=== PATIENT | female | born 1940 | race Caucasian/White ===

== ENCOUNTER 2018-02-21 12:06 | Day surgery (SDC) | payer MEDICARE ==
[2018-02-21] MEDS ORDERED: MORPHINE 2 MG/ML CARPUJECT IVP STA (12:46)
[2018-02-21] MEDS ORDERED: ONDANSETRON 4 MG/2 ML VIAL IVP STA (12:46)
--- NOTE | 2018-02-21 12:49 | ED Physician Documentation ---
PD HPI ABD PAIN - Stated complaint Stated Complaint: ADB PX/VOMITING - Chief complaint Chief Complaint: Abd Pain - History obtained from History obtained from: Patient - History of Present Illness Timing - onset: Last night (Around 5:00 last night, about half an hour eating steak and mushrooms she developed severe epigastric pain radiating down into the back. It was associated with nausea and vomiting but no changes in bowel movements. She is been sweating but no measured fevers or chills. She has a history of a remote appendectomy, no other abdominal surgeries.) Timing - details: Abrupt onset Location: All over / everywhere Associated symptoms: Nausea, Vomiting Review of Systems Ten Systems: 10 systems reviewed and negative Constitutional: reports: Sweats. denies: Fever, Chills Cardiac: denies: Chest pain / pressure, Palpitations Respiratory: denies: Dyspnea, Cough GI: reports: Abdominal Pain, Nausea, Vomiting. denies: Constipation, Diarrhea, Hematemesis, Bloody / black stool PD PAST MEDICAL HISTORY - Past Medical History Past Medical History: No Cardiovascular: High cholesterol Respiratory: None Neuro: None Endocrine/Autoimmune: None GI: None SILICATOR: None HEENT: None Psych: Depression Derm: None - Past Surgical History Past Surgical History: Yes General: Appendectomy Ortho: Hip replacement - Allergies Allergies/Adverse Reactions: Allergies Allergy/AdvReac Type Severity Reaction Status Date / Time No Known Drug Allergies Allergy Verified 02/21/18 12:21 - Social History Does the pt smoke?: Yes Smoking Status: Current every day smoker Does the pt drink ETOH?: Yes ETOH Use: Wine Does the pt have substance abuse?: No - Family History Family history: reports: Non contributory - Immunizations Immunizations are current?: Yes - POLST Patient has POLST: No PD ED PE NORMAL - Vitals Vital signs reviewed: Yes - General General: Alert and oriented X 3, No acute distress - HEENT HEENT: PERRL, EOMI - Neck Neck: Supple, no meningeal sign, No bony TTP - Cardiac Cardiac: RRR, No murmur - Respiratory Respiratory: No respiratory distress, Clear bilaterally - Abdomen Abdomen: Normal bowel sounds, Soft, Other (Minimal upper abdominal tenderness, equivocal [place] sign. No surgical signs.) - Back Back: No CVA TTP, No spinal TTP - Derm Derm: Normal color, Warm and dry - Extremities Extremities: No edema, No calf tenderness / cord - Neuro Neuro: Alert and oriented X 3, Normal speech Results - Vitals Vitals: Vital Signs - 24 hr 02/21/18 12:18 Temperature 36.7 C Heart Rate 83 Respiratory 16 Rate Blood Pressure 192/103 H O2 Saturation 99 Oxygen O2 Source Room air - EKG (time done) 1250 Rate: Rate (enter#) (91) Rhythm: NSR [place]: Normal Intervals: Normal VA QRS: Normal Ischemia: Normal ST segments Computer interpretation: Agree with computer - Rads (name of study) CT A/P Radiology: EMP read contemporaneously (Closed loop obstruction related to a direct left inguinal hernia) PD MEDICAL DECISION MAKING - ED course ED course: 77-year-old woman with acute abdominal pain and vomiting since last night. Initially the concern was for gallbladder issue given the history, that said she was not really very tender. She did have bowel sounds so the CT finding of a closed loop obstruction related to a left inguinal hernia was a surprise. I did address that after the CT and the hernia was palpated, but not grossly obvious on visual exam. I was unable to reduce it. Spoke with Dr. Raza who will take her to the OR, we spoke at 2:55 PM. - Sepsis Event Vital Signs: Vital Signs - 24 hr 02/21/18 12:18 Temperature 36.7 C Heart Rate 83 Respiratory 16 Rate Blood Pressure 192/103 H O2 Saturation 99 Oxygen O2 Source Room air Departure - Departure Disposition: ED Transfer to [facility] Clinical Impression: Small bowel obstruction Condition: Serious
[2018-02-21 13:12] LABS: BASOPHILS % (AUTO) 0.4 %; HGB - HEMOGLOBIN 14.3 g/dL (12.0-16.0); LYMPHOCYTES # (AUTO) 1.1 10^3/uL (1.5-3.5); LYMPHOCYTES % (AUTO) 10.4 %; MEAN CORPUSCULAR HGB CONC 33.7 g/dL (32.0-36.0); MEAN PLATELET VOLUME 7.2 fL (7.9-10.8); MONOCYTES # (AUTO) 0.5 10^3/uL (0.0-1.0); MONOCYTES % (AUTO) 4.9 %; NEUTROPHILS # (AUTO) 9.3 10^3/uL (1.5-6.6); NEUTROPHILS % (AUTO) 84.3 %; PLT - PLATELET COUNT 312 10^3/uL (130-450); RED BLOOD COUNT 4.47 10^6/uL (4.20-5.40); RED CELL DISTRIBUTION WIDTH 13.6 % (12.0-15.0)
[2018-02-21 13:25] LABS: ALBUMIN 4.6 g/dL (3.2-5.5); ALBUMIN/GLOBULIN RATIO 1.4 (1.0-2.2); BILIRUBIN,TOTAL 0.8 mg/dL (0.2-1.0); CALCIUM 9.4 mg/dL (8.5-10.3); CREATININE 0.7 mg/dL (0.4-1.0); TOTAL PROTEIN 7.8 g/dL (6.7-8.2)
[2018-02-21 13:28] LABS: BILIRUBIN,URINE NEGATIVE (NEGATIVE); GLUCOSE, URINE (UA) NEGATIVE (NEGATIVE); KETONES,URINE (UA) TRACE mg/dL (NEGATIVE); LEUKOCYTE ESTERASE, URINE NEGATIVE (NEGATIVE); NITRITE,URINE NEGATIVE (NEGATIVE); OCCULT BLOOD,URINE TRACE-INTA (NEGATIVE); PH,URINE 6.5 PH (5.0-7.5); PROTEIN,URINE TRACE mg/dL (NEGATIVE); UROBILINOGEN,URINE 0.2 (NORMAL) E.U./dL (NORMAL)
[2018-02-21 13:30] LABS: CLARITY,URINE CLEAR (CLEAR)
[2018-02-21] MEDS ORDERED: IOPAMIDOL-300 100 ML VIAL ONE (13:35)
[2018-02-21] MEDS ORDERED: IOPAMIDOL-300 100 ML VIAL IVP ONE (14:19)
--- NOTE | 2018-02-21 14:53 | CT Report ---
Reason: IV only, diffuse abd pain Procedure Date: 02/21/2018 Accession Number: [id number] / [id number] Procedure: CT - Abdomen/Pelvis W/ CPT Code: FULL RESULT: EXAM: CT ABDOMEN AND PELVIS EXAM DATE: 02/21/2018 02:09 PM. CLINICAL HISTORY: IV only, diffuse abdominal pain. COMPARISONS: None. TECHNIQUE: Routine helical CT imaging was performed through the abdomen and pelvis. IV contrast: ISOVUE 300 100mL. Enteric contrast: No. Reconstructions: Coronal and sagittal. In accordance with CT protocol optimization, one or more of the following dose reduction techniques were utilized for this exam: automated exposure control, adjustment of mA and/or KV based on patient size, or use of iterative reconstructive technique. FINDINGS: Lung Bases: Moderate size hiatal hernia. Liver: There is a granuloma near the dome of the liver as well as a hepatic hypodensity which is too small to characterize. Gallbladder/Bile Ducts: Gallbladder is distended with hyperdensity along its dependent portion suggestive of small calculi. No evidence of cholecystitis. There is dilation of the common bile duct to 7 mm distally and dilation of the pancreatic duct to 6 mm. Spleen: Normal. Pancreas: Normal. Adrenal Glands: Normal. Kidneys: Normal. No masses or hydronephrosis. Peritoneal Cavity/Bowel: Distal small bowel obstruction due to direct inguinal hernia in the left groin, not within the inguinal canal. While there is 1 collapsed exiting Loop, this configuration is a closed-loop equivalent. Vasculature: No aneurysms or other significant abnormality. Bones: No aggressive osseous lesion. Other: None. IMPRESSION: Direct left inguinal hernia causing closed loop obstruction equivalent of the distal small bowel. CRITICAL RESULT: The findings were discussed with Dr. Bass on 02/21/2018 at 2:40 PM. RADIA
[2018-02-21] MEDS ORDERED: LACTATED RINGERS 1,000 ML IV STA (15:08)
--- NOTE | 2018-02-21 15:47 | ANESTHESIA ---
Pre-Anesthesia VS, & Labs - Diagnosis closed loop small bowel obstruction probable hernia - Procedure exploratory laparotomy Vital Signs: Temp Pulse Resp BP Pulse Ox 36.7 C 83 16 192/103 H 99 02/21/18 12:18 02/21/18 12:18 02/21/18 12:18 02/21/18 12:18 02/21/18 12:18 Height 5 ft 1 in Weight (kg) 47.627 kg Body Mass Index 19.8 - NPO >8 hours - Is Patient ?: Not Applicable - Lab Results Current Lab Results: Laboratory Tests 02/21/18 12:45: Troponin I < 0.04 02/21/18 12:45: Sodium 142, Potassium 3.4 L, Chloride 100 L, Carbon Dioxide 30, Anion Gap 12.0, BUN 21 H, Creatinine 0.7, Estimated GFR (MDRD) 81 L, Glucose 169 H, Calcium 9.4, Total Bilirubin 0.8, AST 30, ALT 22, Alkaline Phosphatase 66, Total Protein 7.8, Albumin 4.6, Globulin 3.2, Albumin/Globulin Ratio 1.4, Lipase 31 02/21/18 12:45: WBC 11.0 H, RBC 4.47, Hgb 14.3, Hct 42.5, MCV 95.0, MCH 32.0 H, MCHC 33.7, RDW 13.6, Plt Count 312, MPV 7.2 L, Neut # (Auto) 9.3 H, Lymph # ( Auto) 1.1 L, [place] # (Auto) 0.5, Eos # (Auto) 0.0, Baso # (Auto) 0.0, Absolute Nucleated RBC 0.01, Nucleated RBC % 0.1 Fish Bones: 02/21/18 12:45 02/21/18 12:45 Home Medications and Allergies Active Medications Lactated Ringer's (Lr) 1,000 mls @ 150 mls/hr IV .Q6H40M STA Stop: 02/21/18 21:47 Last Admin: 02/21/18 15:14 Dose: 150 mls/hr Allergies/Adverse Reactions: Allergies Allergy/AdvReac Type Severity Reaction Status Date / Time No Known Drug Allergies Allergy Verified 02/21/18 12:21 Anes History & Medical History - Anesthetic History Anesthesia Complications: reports: Post-Operative Nausea/Vomiting Family history of Anesthesia Complications: Denies Family history of Malignant Hyperthermia: Denies - Medical History Cardiovascular: reports: High cholesterol Pulmonary: reports: None Gastrointestinal: reports: None Neuro: reports: None Endocrine/Autoimmune: reports: None Skin: reports: None Smoking Status: Current every day smoker - Surgical History General: Appendectomy Orthopedic: Hip replacement Exam General: Alert, Oriented x3, Cooperative, No acute distress Dental: Partials Upper, Other (implants) Mouth Openin Fingerbreadth Neck Mobility: Normal Mallampati classification: III Thyromental Distance: greater than 6 cm Respiratory: Lungs clear, Normal breath sounds, No respiratory distress, No accessory muscle use Cardiovascular: Regular rate, Normal S1, Normal S2, No murmurs Mental/Cognitive Status: Alert/Oriented X3, Normal for patient Cognitive Status: Within normal limits Plan Anesthesia Type: General Consent for Procedure(s) Verified and Reviewed: No Code Status: Attempt Resuscitation ASA classification: 2-Mild systemic disease Is this case an emergency?: Yes
[2018-02-21] MEDS ORDERED: BUPIVACAINE 0.5% PF 30 ML VIAL ONE (20:06)
[2018-02-21] MEDS ORDERED: LACTATED RINGERS 1,000 ML IV ONE ×3 (20:32→23:01)
--- NOTE | 2018-02-21 20:46 | CONSULTATION NOTE ---
Referring Provider Name of Referring Provider:: Dr. Imtiaz Sterling Consult Date: 02/21/18 Chief Complaint - Chief Complaint Chief Complaint: Abdominal pain associated with nausea and vomiting History of Present Illness - Admitted From Admitted From:: [facility] ED - History Obtained From Records Reviewed: Yes History obtained from: Patient, daughter, Dr. Sterling, chart Exam Limitations: None - History of Present Illness HPI Comment/Other: Dr. Grossman asked to see this very pleasant 77-year-old female for a closed loop small bowel obstruction. I actually reviewed the films with our radiologist in person prior to seeing the patient. The patient tells me that she is always known she had a little bit of a bulge there in the left groin but did not think anything of it. She was recently traveling to [place] to distribute her 's ashes (he recently ). She noted that bulging on the trip. It did not give her any symptoms. Yesterday evening after a meal of steak and mushrooms she had the onset of abdominal pain accompanied by nausea and vomit ing. When this did not resolved by this morning she decided to come into the emergency department. She states that yesterday and for a couple months prior to this she is been passing quite a bit of gas. She denies any nausea vomiting prior to this. She denies any significant blood per rectum, melena, or hematemesis. She is not had any significant weight loss. As an aside she is [place] [facility], and both she and her were avid golfers. 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 HEENT: reports: None Psych: reports: Depression Derm: reports: None MRSA Hx?: No - Past Surgical History General: reports: Appendectomy Ortho: reports: Hip replacement - POLST Patient has POLST: No Meds/Allgy - Home Medications Home Medications: Ambulatory Orders Medication Instructions Recorded Confirmed Atorvastatin Calcium 40 mg PO DAILY 02/21/18 02/21/18 Clotrimazole 1 g TOP BID 02/21/18 02/21/18 Fluticasone [Flonase] 2 sprays ADRIAN BID 02/21/18 02/21/18 PARoxetine HCl [Paroxetine HCl] 20 mg PO DAILY 02/21/18 02/21/18 - Allergies Allergies/Adverse Reactions: Allergies Allergy/AdvReac Type Severity Reaction Status Date / Time No Known Drug Allergies Allergy Verified 02/21/18 12:21 Review of Systems - Constitutional Constitutional: denies: Fatigue, Fever, Chills - Eyes Eyes: denies: Pain - Ears, Nose & Throat Ears, Nose & Throat: denies: Ear pain - Cardiovascular Cariovascular: denies: Irregular heart rate, Palpitations, Chest pain - Respiratory Respiratory: denies: Cough, Sputum production, Wheezing - Gastrointestinal Gastrointestinal: reports: Abdominal pain, Nausea, Vomiting, Bloating. denies: Black stools, Bloody stools - Integumentary Integumentary: denies: Rash - Neurological Neurological: denies: General weakness, Focal weakness Exam - Vital Signs Reviewed Vital Signs: Yes Vital Signs: Vital Signs x48h Temp Pulse Resp BP Pulse Ox 02/21/18 20:25 36.6 C 96 18 140/80 H 97 02/21/18 17:21 97 18 134/80 H 95 - Physical Exam General Appearance: positive: No acute distress Eyes Bilateral: positive: No lid inflammation, Conjunctivae nml, No scleral icterus ENT: positive: Dry mucous membranes Neck: positive: Trachea midline Respiratory: positive: Chest non-tender, No respiratory distress, Breath sounds nml Cardiovascular: positive: Regular rate & rhythm Abdomen: positive: Non-tender, Nml bowel sounds, Other (Enlarged lymph node in left groin. Not reducible LEFT hernia (likely inguinal).) Skin: positive: Color nml Extremities: positive: Non-tender, Nml appearance Neurologic/Psychiatric: positive: Oriented x3 Conclusion/Plan - Diagnosis Diagnosis: Closed loop small bowel obstruction due to incarcerated LEFT groin hernia - Plan Plan: Reduction of incarcerated left inguinal hernia with herniorrhaphy likely with or without mesh, possible exploratory laparotomy, possible small bowel resection. The indications, procedure, alternatives including not repairing the hernia, and risks including but not limited to infection, bleeding, nerve injury, and were fully explained to the patient and all questions were fully answered. I explained that following the surgery I did not want her lifting anything over 15 pounds for 6 weeks to allow the area to heal optimally and decrease the likelihood that the hernia would recur. Verbal and written consent was obtained. The patient in preparation for her surgery will be nothing by mouth, receive a soap water shower, and receive 2 g of Ancef preoperatively for prophylaxis against surgical infection. I also asked the patient to let me know if there is any way we can make her stay at [facility] more comfortable and she stated that she would let me know. I did explain that if large lymph nodes were found I would likely excise them as a part of the procedure. 45 minutes of [id number] time was spent with the patient with over 80% spent in discussion, coordination of her care and completion of the requisite paperwork Dragon disclaimer: This document was created in part using voice recognition technology. Because of the inherent limitations of the system ([employer]'s [employer] Dictate user manual states that the licensee understands that speech recognition is a statistical process and that recognition errors are inherent in the process), occasional same sounding word substitutions and grammatical errors do occur and persist despite proofreading. Please read this document for context. - Lab Results Lab results reviewed: Yes Fish Bones: 02/21/18 12:45 02/21/18 12:45 - Diagnostic Imaging Results Diagnostic Imaging Results: positive: Final report reviewed, Discussed with radiologist
[2018-02-21] MEDS ORDERED: ceFAZolin 2 GM/50 ML 2 GM/50 ML BAG IV ONE (20:47)
[2018-02-21] MEDS ORDERED: BUPIVACAINE 0.5% PF 30 ML VIAL SUBQ ONE (21:06)
[2018-02-21] MEDS ORDERED: fentaNYL 100 MCG/2 ML VIAL IVP ONE (21:45)
[2018-02-21] MEDS ORDERED: PROPOFOL 200 MG/20 ML VIAL IVP ONE (21:45)
[2018-02-21] MEDS ORDERED: ROCURONIUM 50 MG/5 ML VIAL IVP ONE (21:45)
[2018-02-21] MEDS ORDERED: ACETAMINOPHEN 1,000 MG/100 ML 100 ML IV ONE (21:45)
[2018-02-21] MEDS ORDERED: LIDOCAINE-MPF 2% 5 ML VIAL IM ONE (21:45)
[2018-02-21] MEDS ORDERED: ONDANSETRON 4 MG/2 ML VIAL IVP ONE (21:45)
[2018-02-21] MEDS ORDERED: SUGAMMADEX 200 MG/2 ML VIAL IVP ONE (22:02)
[2018-02-21] MEDS ORDERED: BACITRACIN OINT TOP ONE (22:12)
[2018-02-21] MEDS ORDERED: HYDROmorphone 0.5 MG/0.5 ML SYRINGE IVP PRN (22:41)
[2018-02-21] MEDS ORDERED: ONDANSETRON 4 MG/2 ML VIAL IVP PRN (22:41)
--- NOTE | 2018-02-21 22:52 | OPERATIVE REPORT ---
Operative Report - General Procedure Date: 02/21/18 Planned Procedure: Reduction of incarcerated left inguinal hernia with left inguinla herniorrh Pre-Op Diagnosis: Incarcerated left inguinal hernia resulting in small bowel obstruction Procedure Performed: Reduction of incarcerated indirect LEFT inguinal hernia with mesh herniorrhaphy Excision of LEFT femoral lymph node Excision of LEFT groin sebaceous cyst Post Op Diagnosis: Incarcerated left inguinal hernia resulting in small bowel obstruction - Procedure Note Primary Surgeon: Calvin Raza MD Anesthesia Provider: Calvin Bailey MD Anesthesia Technique: General ET tube, Local IV Fluids (mL): 800 Estimated Blood Loss (mL): 5 Complications: None. - Other Other Information/Narrative: OPERATIVE DESCRIPTION/REPORT: After verbal and written informed consent was obtained detailing the risks of infection, bleeding requiring transfusion with its risks, nerve injury, and , and after I met with the patient confirming the surgery and the site of the surgery and after initialing the site of the surgery with a surgical marker, the patient was brought to the operative suite and placed supine on the operating table. Great care was taken to avoid pressure points to prevent pressure necrosis or nerve injury. Monitoring devices were applied along with TEDs and pneumatic compressive stockings (to prevent DVT). The patient received preoperative antibiotics for surgical prophylaxis. Dr. Calvin Bailey sedated and anesthetized the patient for the entire procedure. The patient was prepped and draped in the usual sterile manner. With the patient draped my initials were clearly visible. A "time in" then confirmed that the patient was identified with 3 identifiers (name, date and medical record number), the history and physical was in the chart, the signed consent confirming the procedure was in the chart, the patient was in the correct position, the aforementioned prophylactic measures were in place or given, we had the correct personnel and equipment to complete the procedure and that anesthesia, surgery and nursing were given an opportunity to express any concerns. With the agreement of everyone in the room, we proceeded with the operation. A standard LEFT inguinal incision was made and dissection was carried down to the external oblique aponeurosis using a combination of Metzenbaum scissors and Bovie electrocautery. The bulge was clearly underneath the external oblique aponeurosis. The external oblique aponeurosis was cleared of overlying adherent tissue, and the external ring was delineated. The external oblique was the incised with a scalpel and this incision was carried out to the external ring using Metzenbaum scissors. Upon opening the external oblique aponeurosis it was clear that the bowel underneath which was small bowel was pink and viable. The hernia defect was an indirect hernia defect and was exceedingly small. There were some adhesions of the bowel and mesentery to the inguinal canal which were taken using Bovie electrocautery. I attempted numerous times to reduce the small bowel back into the abdomen but due to the small size of the hernia defect this was impossible. As result I had to open the hernia defect in order to reduce the small bowel into the abdomen. This was done by incising along the lateral aspect of the hernia defect. I used a [facility] retractor to protect the bowel. With the incision the hernia defect could be reduced back into the abdomen. Due to the patient's small size and due to the fact that the bowel had obviously been in close contact in the inguinal canal I did not wish to use a standard plug and patch repair. I wished to use a flat piece of mesh that was coated rather than a "badmitton birdie" type of mesh. As such I inserted a Proceed ventral patch (lot #[id number], use by date 2018-12-13) into the defect and sutured in place using interrupted 2-0 PDS sutures circumferentially. Then, over this, between the internal oblique and the external oblique aponeuroses I placed a Bard mesh (lot# [id number], ref# [id number], use by date 2020-07-13) that was cut to fit and secured again using interrupted 2-0 PDS sutures to the pubic tubercle medially, the conjoined tendon superiorly, the shelving edge of Poupart's ligament inferiorly and then tucked laterally underneath the external oblique. The wound was then irrigated using sterile saline, and hemostasis was obtained using Bovie electrocautery. The incision in the external oblique was approximated using a 3-0 Vicryl in a running fashion, thus reforming the external ring. 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 There were multiple small femoral lymph nodes clearly palpable and quite hard and as a result I removed 1 of these and send it for pa thologic evaluation. The skin incision was approximated with 4-0 Monocryl in a subcuticular fashion. Inferior to this in the left inguinal crease there was a mass that was hard. After anesthetizing the skin using half percent Marcaine an incision was made and dissection down the mass was carried out using a scalpel. It immediately became apparent that this mass was a large sebaceous cyst. The cyst was excised in total including the wall. Due to concerns that I had regarding possible infection the skin was approximated using 1 4-0 Monocryl in a simple fashion. The skin was prepped with benzoin and steristrips were applied at the hernia site. At this point a time out was performed that confirmed that all the counts were correct, the procedure that was performed, the blood loss, the IV fluids administered, and the patients condition. A dressing was then applied. Gentle downward traction ensured that the testes were well seated in the scrotum. Having tolerated the procedure well, the patient was taken to short stay in good and stable condition. [employer] disclaimer: This document was created in part using voice recognition technology. Because of the inherent limitations of the system ([employer]'s [employer] Dictate user manual states that the licensee understands that speech recognition is a statistical process and that recognition errors are inherent in the process), occasional s asmita sounding word substitutions and grammatical errors do occur and persist despite proofreading. Please read this document for context.
[2018-02-21] MEDS ORDERED: LACTATED RINGERS 1,000 ML IV SCH (23:45)
[2018-02-22] MEDS: HYDROcod/ACETAM 5/325 MG TABLET PO PRN ×2 (06:25→11:09)
--- NOTE | 2018-02-22 09:24 | Discharge Plan ---
Discharge Plan Disposition: 01 Home, Self Care Condition: Serious Prescriptions: HYDROcod/ACETAM [[place] ] 1 tab PO Q4HR PRN #20 tablet PRN Reason: Pain Diet: Regular Activity Restrictions: No lifting >15 pounds Shower Restrictions: No Driving Restrictions: Yes (Not while on pain medications) Weight Bearing: Full Weight No Smoking: If you smoke, Please STOP! Call for help. Follow-up with: Juancho Lester MD [Primary Care Provider] - Calvin Raza MD [Provider Admit Priv/Credential] -
--- NOTE | 2018-02-22 09:27 | DISCHARGE SUMMARY ---
"Discharge Summary Admit Date: 02/21/18 Discharge Date: 02/22/18 Discharging Provider: Calvin Raza MD Code Status: Attempt Resuscitation Condition at Discharge: Good Discharge Disposition: 01 Home, Self Care - DIAGNOSES Admission Diagnoses: Closed loop small bowel obstruction due to incarcerated LEFT inguinal hernia Discharge Diagnoses with Status of Each Condition: Hernia repaired with mesh Incarceration reduced bowel function preserved Lymph node sampled - pathology pending Sebaceous cyst removed - HPI History of Present Illness: 77 year old female with less than 24 hour history of nausea, vomiting and non reducible mass in LLQ - CONSULTS | PROCEDURES Consultations: Calvin Raza MD Procedures: Reduction of incarcerated LEFT inguinal hernia with mesh repair, lymph node biopsy, excision sebaceous cyst - ALLERGIES Allergies/Adverse Reactions: Allergies Allergy/AdvReac Type Severity Reaction Status Date / Time No Known Drug Allergies Allergy Verified 02/21/18 12:21 - MEDICATIONS Home Medications: Ambulatory Orders Medication Instructions Recorded Confirmed Atorvastatin Calcium 40 mg PO DAILY 02/21/18 02/21/18 Clotrimazole 1 g TOP BID 02/21/18 02/21/18 Fluticasone [Flonase] 2 sprays ADRIAN BID 02/21/18 02/21/18 PARoxetine HCl [Paroxetine HCl] 20 mg PO DAILY 02/21/18 02/21/18 HYDROcod/ACETAM 5/325 [[place] 5/325] 1 tab PO Q4HR PRN #20 tablet 02/22/18 - PHYSICAL EXAM AT DISCHARGE General Appearance: positive: No acute distress Eyes Bilateral: positive: No lid inflammation, Conjunctivae nml, No scleral icterus ENT: positive: No signs of dehydration Neck: positive: Trachea midline Respiratory: positive: Chest non-tender, No respiratory distress, Breath sounds nml Cardiovascular: positive: Regular rate & rhythm Abdomen: positive: Non-tender, Nml bowel sounds, No distention, Other (Some drainage on dressing.) Skin: positive: Color nml Extremities: positive: Nml appearance Neurologic/Psychiatric: positive: Oriented x3 - LABS Result Diagrams: 02/21/18 12:45 02/21/18 12:45 - FOLLOW UP Follow Up: Luz Marina in 7-10 days"
[2018-02-22 10:47] VITALS: BP 129/68
== END 2018-02-22 11:15 | disposition home or self-care (01) ==
LOC: ED 12:06 → SDS 19:45 → MS3 22:51 → SDS 02-22 11:15
PROVIDERS: ATTEND Surgery
PROC: 07BG0ZX Excision of Left Lower Extremity Lymphatic, Open Approach, Diagnostic (ICD-10-PCS; 2018-02-21)
PROC: 0JBC0ZZ Excision of Pelvic Region Subcutaneous Tissue and Fascia, Open Approach (ICD-10-PCS; 2018-02-21)
PROC: 0YU60JZ Supplement Left Inguinal Region with Synthetic Substitute, Open Approach (ICD-10-PCS; principal; 2018-02-21 18:00)
DX: K40.30 Unilateral inguinal hernia, with obstruction, without gangrene, not specified as recurrent (principal); L72.3 Sebaceous cyst; I89.9 Noninfective disorder of lymphatic vessels and lymph nodes, unspecified
CPT/HCPCS: 11402; 38500; 49505; 74177; 80053; 81003; 83690; 84484; 85025; 93005; 96374; 96375; 99283; 99284; A9270; C1781; J0131; J0690; J7120; Q9967; 81001; 87086